=== PATIENT | male | born 1975 | race African-American/Black ===

== ENCOUNTER 2017-03-17 16:51 | Emergency (ER) | payer OTHER ==
--- NOTE | 2017-03-17 17:55 | ER Document Report ---
ED Medical Screen (RME) - General Chief Complaint: Chest Pain Stated Complaint: CHEST PAIN, LEFT ARM NUMBNESS Time Seen by Provider: 03/17/17 17:49 Notes: patient is a 41 year old male who presents to the ED complaining of chest pain with sudden onset at 350pm. Chest pain with sudden onset this afternoon with dull ache, denies pressure. Associated left arm tingling. Admits to a fall 10 days ago with assocaited chest wall pain, no evidence of fracture on xray at urgent care. admits to pain with deep respiration, and leaning back/laying flat. Denies recent URI/cold but admits to nonproductive cough for "months" PMH: admits to HTN denies DM, HLD, CAD, previous [place] PSH: denies SH: current smoker, previous social marijuana user TRAVEL OUTSIDE OF THE [place] IN LAST 30 DAYS: No - Related Data Allergies/Adverse Reactions: No Known Allergies Allergy (Unverified 03/17/17 16:57) Past Medical History Renal/ Medical History: Denies: Hx Peritoneal Dialysis Physical Exam - Vital signs Vitals: Temp Pulse Resp BP Pulse Ox 98.7 F 110 H 22 H 142/89 H 94 03/17/17 16:57 03/17/17 16:57 03/17/17 16:57 03/17/17 16:57 03/17/17 16:57 - General General appearance: Appears well, Alert In distress: None - Respiratory Respiratory status: No respiratory distress Chest status: Nontender Breath sounds: Normal Chest palpation: Normal - Cardiovascular Rhythm: Tachycardia Heart sounds: Normal auscultation, S1 appreciated, S2 appreciated Murmur: No Gallop: None auscultated Pulses: Normal: Radial Course - Vital Signs Vital signs: Temp Pulse Resp BP Pulse Ox 98.7 F 110 H 22 H 142/89 H 94 03/17/17 16:57 03/17/17 16:57 03/17/17 16:57 03/17/17 16:57 03/17/17 16:57
[2017-03-17] MEDS ORDERED: ASPIRIN 81 MG TABLET, CHEWABLE PO ONE (17:57)
--- NOTE | 2017-03-17 18:42 | RADIOLOGY REPORT (SQ) ---
EXAM DESCRIPTION: CHEST SINGLE VIEW COMPLETED DATE/TIME: 03/17/2017 6:22 pm REASON FOR STUDY: chest pain COMPARISON: June 2009 EXAM PARAMETERS: NUMBER OF VIEWS: One view. TECHNIQUE: Single frontal radiographic view of the chest acquired. RADIATION DOSE: NA LIMITATIONS: None. FINDINGS: LUNGS AND PLEURA: No opacities, masses or pneumothorax. No pleural effusion. MEDIASTINUM AND HILAR STRUCTURES: No masses. Contour normal. HEART AND VASCULAR STRUCTURES: Heart normal in size. Normal vasculature. BONES: No acute findings. HARDWARE: None in the chest. OTHER: No other significant finding. IMPRESSION: NO ACUTE RADIOGRAPHIC FINDING IN THE CHEST. TECHNICAL DOCUMENTATION: JOB ID: [id number]
[2017-03-17 19:02] LABS: ABSOLUTE BASOPHILS # (AUTO) 0.1 10^3/uL (0.0-0.2); ABSOLUTE EOSINOPHILS # (AUTO) 0.3 10^3/uL (0.0-0.6); ABSOLUTE NEUT (AUTO) 7.8 10^3/uL (1.7-8.2); BASOPHILS % (AUTO) 0.5 % (0-2); EOSINOPHILS % (AUTO) 2.3 % (0-6); HEMOGLOBIN 15.2 g/dL (13.5-17.0); HGB HCT DIFFERENCE 2.6; LYMPHOCYTES % (AUTO) 30.3 % (13-45); MEAN CORPUSCULAR HEMOGLOBIN 25.5 pg (27.0-33.4); MEAN CORPUSCULAR HGB CONC 35.3 g/dL (32.0-36.0); MEAN CORPUSCULAR VOLUME 72 fl (80-97); MONOCYTES % (AUTO) 7.8 % (3-13); RED BLOOD COUNT 5.97 10^6/uL (4.35-5.55); RED CELL DISTRIBUTION WIDTH 17.9 % (11.5-14.0); SEGMENTED NEUTROPHILS % (AUTO) 59.1 % (42-78); WHITE BLOOD COUNT 13.1 10^3/uL (4.0-10.5)
[2017-03-17 19:27] LABS: CREATINE KINASE MB 1.64 ng/mL (<4.55)
[2017-03-17 19:33] LABS: TROPONIN I < 0.012 ng/mL
[2017-03-17 19:40] LABS: ALANINE AMINOTRANSFERASE 32 U/L (21-72); ALKALINE PHOSPHATASE 71 U/L (38-126); ANION GAP 9 (5-19); ASPARTATE AMINO TRANSFERASE 16 U/L (17-59); BILIRUBIN,DIRECT 0.4 mg/dL (0.0-0.4); BILIRUBIN,TOTAL 0.6 mg/dL (0.2-1.3); BLOOD UREA NITROGEN 13 mg/dL (7-20); CALCIUM 9.7 mg/dL (8.4-10.2); CARBON DIOXIDE 30 mmol/L (22-30); CHLORIDE 98 mmol/L (98-107); CREATINE KINASE 294 U/L (55-170); CREATININE RESULT 1.19 mg/dL (0.52-1.25); GLUCOSE 91 mg/dL (75-110); POTASSIUM 4.4 mmol/L (3.6-5.0); SODIUM 137.4 mmol/L (137-145); TOTAL PROTEIN 7.3 g/dL (6.3-8.2)
--- NOTE | 2017-03-17 21:31 | ER Document Report ---
ED General - General TRAVEL OUTSIDE OF THE [place] IN LAST 30 DAYS: No <GANESH STREETER - Last Filed: 03/17/17 21:30> <JULIANNA MEADOWS - Last Filed: 03/17/17 23:42> - General Chief Complaint: Chest Pain Stated Complaint: CHEST PAIN, LEFT ARM NUMBNESS Time Seen by Provider: 03/17/17 17:49 Notes: Patient is a 41-year-old male who presents with complaint of chest pain. He says the chest pain started when he is on his way home from work. He does not feel stressed or anxious. He says pain is in the left side of his chest hurts more when he takes deep breath. He also numbness going to his left arm. Says the numbness in his left arm is resolved but he still has some pain in his chest when he takes a deep breath. No fevers. No vomiting. No diarrhea. No recent sick contacts. He does have history of hypertension. He does smoke. He is overweight. No other complaints at this time. (JULIANNA MEADOWS) - Related Data Allergies/Adverse Reactions: No Known Allergies Allergy (Unverified 03/17/17 16:57) Past Medical History - Social History Smoking Status: Current Every Day Smoker Chew tobacco use (# tins/day): No Frequency of alcohol use: None Drug Abuse: None - Past Medical History Cardiac Medical History: Reports: Hx Hypertension Renal/ Medical History: Denies: Hx Peritoneal Dialysis Surgical Hx: Negative - Immunizations Hx Diphtheria, Pertussis, Tetanus Vaccination: Yes <GANESH STREETER - Last Filed: 03/17/17 21:30> - Social History Smoking Status: Current Every Day Smoker Frequency of alcohol use: None Drug Abuse: None Family History: Reviewed & Not Pertinent <JULIANNA MEADOWS - Last Filed: 03/17/17 23:42> Review of Systems <GANESH STREETER - Last Filed: 03/17/17 21:30> <JULIANNA MEADOWS - Last Filed: 03/17/17 23:42> - Review of Systems Notes: My Normal Review Basic REVIEW OF SYSTEMS: CONSTITUTIONAL : Denies fever, chills, or sweats. Denies recent illness. EENT: Denies eye, ear, throat, or mouth pain or symptoms. Denies nasal or sinus congestion. CARDIOVASCULAR: Has chest pain RESPIRATORY: Denies cough, cold, or chest congestion. Denies shortness of breath, difficulty breathing, or wheezing. GASTROINTESTINAL: Denies abdominal pain. Denies nausea, vomiting, or diarrhea. MUSCULOSKELETAL: Denies neck or back pain or joint pain or swelling. SKIN: Denies rash or skin lesions. NEUROLOGICAL: Denies altered mental status or loss of consciousness. Denies headache. Denies weakness or paralysis or loss of use of either side. Denies problems with gait or speech. Denies sensory or motor loss. ALL OTHER SYSTEMS REVIEWED AND NEGATIVE. (JULIANNA MEADOWS) Physical Exam <GANESH STREETER - Last Filed: 03/17/17 21:30> <JULIANNA MEADOWS - Last Filed: 03/17/17 23:42> - Vital signs Vitals: Temp Pulse Resp BP Pulse Ox 98.7 F 110 H 22 H 142/89 H 94 03/17/17 16:57 03/17/17 16:57 03/17/17 16:57 03/17/17 16:57 03/17/17 16:57 - Notes Notes: General Appearance: Well nourished, alert, cooperative, no acute distress, no obvious discomfort. Vitals: reviewed, See vital signs table. Head: no swelling or tenderness to the head Eyes: PERRL, EOMI, Conjuctiva clear Mouth: No decreasd moisture Lungs: No wheezing, No rales, No rhonci, No accessory muscle use, good air exchange bilaterally. Chest wall: No reproducible pain to palpation of chest wall. Heart: Normal rate, Regular rythm, No murmur, no rub Abdomen: Normal BS, soft, No rigidity, No abdominal tenderness, No guarding, no rebound, no abdominal masses, no organomegaly Extremities: strength 5/5 in all extremities, good pulses in all extremities, no swelling or tenderness in the extremities, no edema. Skin: warm, dry, appropriate color, no rash Neuro: speech clear, oriented x 3, normal affect, responds appropriately to questions. (JULIANNA MEADOWS) Course - Laboratory Result Diagrams: 03/17/17 18:38 03/17/17 18:38 <GANESH STREETER - Last Filed: 03/17/17 21:30> - Laboratory Result Diagrams: 03/17/17 18:38 03/17/17 18:38 <JULIANNA MEADOWS - Last Filed: 03/17/17 23:42> - Re-evaluation Re-evalutation: 03/17/17 21:30 (GANESH STREETER) 03/17/17 23:40 Patient's chest pain is atypical and that it is pleuritic. I therefore did obtain a CTA of the chest which was negative for PE but did show some evidence of possible impending pneumonia. He says had just very mild cough. He does have a slight leukocytosis and therefore will cover him with Levaquin. I told him that his heart score is 2. I explained to him the heart score and informed him that this meant that he had a 1.2% chance of significant cardiac events in the next 6 weeks. I did offer him admission versus outpatient follow-up. Patient says he prefers to follow-up outpatient with his doctor. It would make an appointment see his doctor and talked about outpatient cardiac stress testing. Informed him that he should still have a low threshold to return to ER immediately if he has any chest pain, difficulty breathing, or feels unwell. Patient agrees with plan and will be discharged home. Dictation of this chart was performed using voice recognition software; therefore, there may be some unintended grammatical errors. (JULIANNA MEADOWS) - Vital Signs Vital signs: Temp Pulse Resp BP Pulse Ox 98.7 F 110 H 21 H 129/87 H 100 03/17/17 16:57 03/17/17 16:57 03/17/17 23:01 03/17/17 23:01 03/17/17 23:01 - Laboratory Laboratory results interpreted by me: 03/17/17 03/17/17 18:38 18:38 WBC 13.1 H RBC 5.97 H MCV 72 L MCH 25.5 L RDW 17.9 H AST 16 L Creatine Kinase 294 H - EKG Interpretation by Me Additional EKG results interpreted by me: 03/17/17 21:58 EKG is reviewed and interpreted by me. EKG shows sinus tachycardia with rate of [address] segment elevation or depression. No ischemic T-wave inversions. MD interval, QRS duration, QTc intervals are within normal range. No old EKG available for comparison. (JULIANNA MEADOWS) Discharge <GANESH STREETER - Last Filed: 03/17/17 21:30> <JULIANNA MEADOWS - Last Filed: 03/17/17 23:42> - Discharge Clinical Impression: Chest pain Qualifiers: Chest pain type: unspecified Qualified Code(s): R07.9 - Chest pain, unspecified Condition: Good Disposition: HOME, SELF-CARE Additional Instructions: Your EKG and heart enzymes today were negative. They did not show any signs of impending heart attack. As discussed with you your heart score is only 2 which means you are very low risk of having a heart attack in the next 6 weeks. This means you can follow-up with your doctor for reevaluation and possible outpatient stress test. Please call his office in the morning to try to follow- up by Tuesday. It is still extremely important that you return to the ER immediately if you have worsening chest pain, any difficulty breathing, or if you feel unwell. Your CT scan of your chest did not show any blood clots in her lungs. It did show the possibility of a developing pneumonia. We will place you on the antibiotic. Please take 81mg aspirin daily. Prescriptions: Levofloxacin [Levaquin 750 mg Tablet] 750 mg PO DAILY #5 tablet Forms: Return to Work Referrals: KARLA WONG MD [ACTIVE STAFF] - 03/21/17
[2017-03-17] MEDS ORDERED: NORMAL SALINE 1000 ML 1,000 ML IV ONE (22:06)
--- NOTE | 2017-03-17 22:46 | RADIOLOGY REPORT (SQ) ---
EXAM DESCRIPTION: CTA CHEST COMPLETED DATE/TIME: 03/17/2017 10:29 pm REASON FOR STUDY: chest pain COMPARISON: Chest x-ray dated 03/17/2017 TECHNIQUE: CT scan of the chest performed using helical scanning technique with dynamic intravenous contrast injection. Images reviewed with lung, soft tissue and bone windows. Reconstructed coronal and sagittal MPR images reviewed. Additional 3 dimensional post-processing performed to develop Maximal Intensity Projection images (NE P). All images stored on PACS. All CT scanners at this facility use dose modulation, iterative reconstruction, and/or weight based d osing when appropriate to reduce radiation dose to as low as reasonably achievable (ALARA). [facility]: Dose Right [facility]: CareDose [facility]: Dose Right [facility]: Teradose 4D [facility]: [employer] CONTRAST TYPE AND DOSE: contrast/concentration: Isovue 370.00 mg/ml; Total Contrast Delivered: 80.0 ml; Total Saline Delivered: 50.1 ml Contrast bolus optimized for the pulmonary arteries. Not diagnostic for the aorta. RENAL FUNCTION: Creatinine 1.19 RADIATION DOSE: Up-to-date CT equipment and radiation dose reduction techniques were employed. CTDIv ol: 6.6 - 37.7 mGy. DLP: 1380 mGy-cm. . LIMITATIONS: None. FINDINGS: LUNGS AND PLEURA: There are some scattered ground-glass opacities which could represent at electatic changes or developing infiltrate. No pleural effusions are identified. AORTA AND GREAT VESSELS: No aneurysm. Contrast bolus not optimized for the aorta. HEART: No pericardial effusion. No significant coronary artery calcifications. PULMONARY ARTERIES: No emboli visualized in the main pulmonary arteries or the segmental branches. HILAR AND MEDIASTINAL STRUCTURES: No identified masses or abnormal nodes. HARDWARE: None in the chest. UPPER ABDOMEN: No significant findings. Limited exam. THYROID AND OTHER SOFT TISSUES: No masses. No adenopathy. BONES: No acute or significant finding. 3D MIPS: Confirm above findings. OTHER: No other significant finding. IMPRESSION: No evidence for pulmonary embolic disease. There is some scattered ground-glass opaciti es which could represent atelectatic changes or developing infiltrate. No pleural effusions are iden tified. Other findings as noted above. COMMENT: Quality ID # [id number]: Final reports with documentation of one or more dose reduction techniques (e.g., Automated exposure control, adjustment of the mA and/or kV according to patient size, use of iterative reconstruction technique) TECHNICAL DOCUMENTATION: JOB ID: [id number] [employer]- All Rights Reserved
[2017-03-17] MEDS ORDERED: LEVOFLOXACIN 750 MG TABLET PO ONE (23:31)
[2017-03-17 23:57] VITALS: BP 112/65
--- NOTE | 2017-03-18 03:55 | EKG REPORT ---
SEVERITY:- OTHERWISE NORMAL ECG - SINUS TACHYCARDIA : Confirmed by: Eveline Powell MD 18-Mar-2017 03:54:03
== END 2017-03-17 23:57 | disposition home or self-care (01) ==
LOC: ER 16:51
DX: R07.9 Chest pain, unspecified (principal); F17.200 Nicotine dependence, unspecified, uncomplicated
CPT/HCPCS: 93005; 99285; 36415; 82553; 82550; 85025; 80053; 84484; 71010; 71275; 93010; J7030